=== PATIENT | female | born 1995 | race Caucasian/White ===

== ENCOUNTER → 2018-06-12 | Outpatient (CLI) | payer BC ==
--- NOTE | 2018-06-12 12:59 | RADIOLOGY REPORT (SQ) ---
EXAM DESCRIPTION: MRI HEAD COMBO COMPLETED DATE/TIME: 06/12/2018 10:26 am REASON FOR STUDY: GALACTORRHEA NOT ASSOCIATED WITH CHILDBIRTH (N64.3) N64.3 GALACTORRHEA NOT ASSOCI ATED WITH CHILDBIRTH COMPARISON: None. TECHNIQUE: Multiplanar imaging includes noncontrasted T1, T2, FLAIR, diffusion with ADC map and post gadolinium contrast T1 sequences. Images stored on PACS. Additional thin section sagittal and coronal T2, T1 precontrast, T1 post contrasted images through th e pituitary fossa and central skullbase. CONTRAST TYPE AND DOSE: 15 mL Dotarem. RENAL FUNCTION: GFR > 60. LIMITATIONS: None. FINDINGS: PITUITARY FOSSA: The pituitary gland itself is 4 mm craniocaudad by 10 mm AP x 11.6 mm tra nsverse found within normal for size. In the anterior lobe pituitary, there is an area of decreased contrast enhancement measuring about 5 mm in diameter worrisome for small pituitary macroadenoma. Th is is best shown on sagittal image 8 and coronal image fine. No superimposed acute or chronic hemorr tommie. Midline pituitary infundibulum. No mass effect on the optic chiasm. Cavernous sinuses are un remarkable. On the sagittal T1 weighted images, the neuro hypothesis or posterior pituitary bright spot is ill-de fined. Correlate clinically/endocrinologically for pituitary hypofunction CSF SPACES: Normal in size and contour. No hemorrhage. CEREBRUM: Sulci and gyri normal in size and contour. Normal white matter signal on FLAIR imaging. No evidence of hemorrhage, mass, or extraaxial fluid collection. No abnormal enhancement post contrast. POSTERIOR FOSSA: No signal alteration. No hemorrhage. No edema, masses, or mass effect. Internal marisa tory canals, cerebellopontine angles, mastoids normal. No enhancing lesions. No abnormal enhancement post contrast. DIFFUSION IMAGING: Negative for acute or subacute infarction. ORBITS: No masses. Globes normal. PARANASAL SINUSES: No fluid levels. Mucosa normal. OTHER: No other significant finding. IMPRESSION: A area of decreased contrast enhancement in the central aspect, anterior lobe pituitary gland could represent a small pituitary at adenoma. Poor visualization of the neurohypophysis, pituitary gland. Consider endocrinology consult EVIDENCE OF ACUTE STROKE: NO. TECHNICAL DOCUMENTATION: JOB ID: [id number] [employer]- All Rights Reserved Reading location - IP/workstation name: [email or web address]
--- NOTE | 2018-06-12 14:06 | RADIOLOGY REPORT (SQ) ---
EXAM DESCRIPTION: SKULL 1-3 VIEWS COMPLETED DATE/TIME: 06/12/2018 10:01 am REASON FOR STUDY: EVAL FOR METAL, SCREEN FOR MRI N64.3 GALACTORRHEA NOT ASSOCIATED WITH CHILDBIRTH COMPARISON: None. NUMBER OF VIEWS: Two views. TECHNIQUE: AP and lateral views of the skull. LIMITATIONS: None. FINDINGS: ORBITS: No fracture. No foreign body. SINUSES: No mucosal thickening. No air fluid levels. BONES: No fracture. OTHER: No other significant finding. IMPRESSION: NEGATIVE STUDY OF THE SKULL. NO RADIO-OPAQUE FOREIGN BODY. THE PATIENT IS CLEARED FOR MRI SCANNING. TECHNICAL DOCUMENTATION: JOB ID: [id number] [employer]- All Rights Reserved Reading location - IP/workstation name: [email or web address]
== END ==
LOC: RAD 09:04
PROVIDERS: ATTEND Obstetrics & Gynecology Gynecology
DX: N64.3 Galactorrhea not associated with childbirth (principal); N91.2 Amenorrhea, unspecified; E03.9 Hypothyroidism, unspecified
CPT/HCPCS: 70553; 70250; A9576